=== PATIENT | male | born 1985 | race African-American/Black ===

== ENCOUNTER 2025-07-12 12:55 | Emergency (ER) | payer MEDICAID ==
[~2025-07-12] VITALS: Ht 188 cm; Wt 100.0 kg
[2025-07-12 13:15] VITALS: O2SAT 99
[2025-07-12] MEDS: SODIUM CHLORIDE 0.9% 1,000 ML IV ONE (13:15)
[2025-07-12] MEDS: MIDAZOLAM HCL 2 MG/2 ML VIAL IM ONE (13:15)
[2025-07-12 14:01] LABS: CREATININE 3.0 mg/dL (0.6-1.3); UREA NITROGEN BLOOD 12.0 mg/dL (9-23)
[2025-07-12 14:03] LABS: BASOPHILS % 0.6 % (0.0-2.0); EOSINOPHILS % 0.2 % (0.0-5.0); HEMATOCRIT. 42.2 % (42.0-52.0); HEMOGLOBIN. 14.4 g/dL (14.0-18.0); LYMPHOCYTES % 9.8 % (20.0-50.0); MEAN PLATELET VOLUME 11.2 fl (7.4-10.4); MONOCYTES % 9.3 % (2.0-8.0); NEUTROPHILS % 80.1 % (40.0-76.0); PLATELET 237 x1000/uL (130-400); RED BLOOD CELL COUNT 4.44 mill/uL (4.7-6.1); RED CELL DISTRIBUTION WIDTH 13.7 % (11.6-14.6)
[2025-07-12 15:26] VITALS: BP 132/74; PULSE 92; RESP 18; TEMP 36.9; O2SAT 99
== END 2025-07-12 16:43 | disposition left against medical advice (07) ==
LOC: ER 12:55
DX: F15.129 Other stimulant abuse with intoxication, unspecified (principal)
CPT/HCPCS: 80048; 80320; 85025; 36415; 96360; 96361; 96372; 99283; J2250; J7030; Z7610 ×3; A4606; G0480

== ENCOUNTER 2025-07-12 18:03 | Emergency (ER) | payer MEDICAID ==
[~2025-07-12] VITALS: Ht 190.5 cm; Wt 100.0 kg
[2025-07-12 18:07] VITALS: O2SAT 98
[2025-07-12 18:17] VITALS: BP 148/96; PULSE 100; RESP 16; TEMP 36.9; O2SAT 97
== END 2025-07-12 19:06 | disposition home or self-care (01) ==
LOC: ER 18:03
DX: F14.90 Cocaine use, unspecified, uncomplicated (principal); F16.90 Hallucinogen use, unspecified, uncomplicated; Z00.00 Encounter for general adult medical examination without abnormal findings; F10.90 Alcohol use, unspecified, uncomplicated; F12.90 Cannabis use, unspecified, uncomplicated; Y90.9 Presence of alcohol in blood, level not specified
CPT/HCPCS: 99282

== ENCOUNTER 2025-07-13 21:00 | Emergency (ER) | payer MEDICAID ==
[~2025-07-13] VITALS: Ht 190.5 cm; Wt 96.8 kg
[2025-07-13 21:29] VITALS: O2SAT 93
[2025-07-14 00:35] VITALS: BP 128/92; PULSE 78; RESP 18; TEMP 36.9; O2SAT 95
== END 2025-07-14 00:43 | disposition home or self-care (01) ==
LOC: ER 21:00
DX: F15.10 Other stimulant abuse, uncomplicated (principal); R06.02 Shortness of breath; Z79.899 Other long term (current) drug therapy
CPT/HCPCS: 71045; 99283